=== PATIENT | male | born 1950 ===

== ENCOUNTER 2023-12-10 12:02 | Outpatient (REF) | payer MEDICARE, SELFPAY ==
[2023-12-10 14:30] LABS: HCT 39.5 % (40.0-50.0); HGB 13.1 g/dL (13.5-17.5); MCH 30.2 pg (27.0-33.0); MCHC 33.2 % (32.0-36.0); MCV 91 fL (80-95); MPV 10.8 fL (8.0-11.0); Platelet Count 197 10^3/uL (130-400); RBC 4.34 10^6/uL (4.36-5.78); RDW 12.9 % (11.8-14.1); RDW-SD 43.8 fL; WBC 4.39 10^3/uL (4.4-10.8)
[2023-12-10 14:45] LABS: ALT 28 U/L (16-63); AST 26 U/L (15-37); Albumin 3.9 g/dL (3.4-5.0); Alkaline Phosphatase 99 U/L (46-116); Anion Gap 8.1 mmol/L (3-11); BUN 13 mg/dL (7-18); Bilirubin, Total 0.5 mg/dL (0.2-1.0); CO2 28.9 mmol/L (21.0-32.0); CREATININE 0.7 mg/dL (0.70-1.30); Calcium 8.4 mg/dL (8.5-10.1); Chloride 106 mmol/L (98-107); Estimated GFR 96.09 (mL/min/1.73m2); Glucose 105 mg/dL (74-106); Potassium 3.9 mmol/L (3.5-5.1); Sodium 143 mmol/L (136-145); Total Protein 7.2 g/dL (6.4-8.2)
[2023-12-11 19:41] LABS: Calculated LDL 114 mg/dL (<100); Cholesterol 188 mg/dL (<200); HDL Cholesterol 47 mg/dL (40-60); Triglyceride 138 mg/dL (<150)
== END 2023-12-10 12:03 | disposition home or self-care (01) ==
LOC: NCHCN 12:02
PROVIDERS: Visit Provider Family Medicine
DX: I10 Essential (primary) hypertension (principal); Z96.0 Presence of urogenital implants
CPT/HCPCS: 80053; 80061; 85027